=== PATIENT | female | born 1945 | race Two or more races ===

== ENCOUNTER 2020-02-03 09:30 | Outpatient (CLI) | payer MEDICARE, MEDICAID ==
[2020-02-03 10:41] LABS: BASOPHILS # (AUTO) 0.1 /CMM (0.0-0.2); BASOPHILS % (AUTO) 2.4 % (0.0-2.0); EOSINOPHILS % (AUTO) 2.4 % (0.0-6.0); HEMATOCRIT 33 % (33-45); HEMOGLOBIN 10.7 g/dL (11.5-14.8); LYMPHOCYTES % (AUTO) 34.3 % (20.0-44.0); MEAN CORPUSCULAR HGB CONC 33 g/dl (31.0-36.0); MEAN CORPUSCULAR VOLUME 95 fL (82-100); MONOCYTES # (AUTO) 0.3 /CMM (0.1-1.30); MONOCYTES % (AUTO) 11.4 % (2.0-12.0); NEUTROPHILS # (AUTO) 1.4 /CMM (1.8-8.9); NEUTROPHILS % (AUTO) 49.5 % (43.0-81.0); PLATELET COUNT (AUTO) 203 /CMM (150-450); RED BLOOD CELL COUNT(AUTO) 3.47 MIL/uL (4.0-5.2); WHITE BLOOD COUNT (AUTO) 2.8 K/uL (4.3-11.0)
[2020-02-03 11:23] LABS: ALANINE AMINOTRANSFERASE 12 U/L (12-78); ALBUMIN 3.2 g/dL (3.4-5.0); ALKALINE PHOSPHATASE 83 U/L (46-116); ASPARTATE AMINOTRANSFERASE 22 U/L (15-37); BILIRUBIN,TOTAL 0.4 mg/dL (0.2-1.0); CALCIUM, SERUM 8.6 mg/dL (8.5-10.1); CARBON DIOXIDE 32 mmol/L (21-32); CHLORIDE 101 mmol/L (98-107); CREATININE 3.3 mg/dL (0.6-1.3); GLUCOSE 104 mg/dL (74-106); MAGNESIUM 2.3 mg/dL (1.8-2.4); PHOSPHORUS 1.9 mg/dL (2.5-4.9); POTASSIUM 4.4 mmol/L (3.5-5.1); SODIUM SERUM 139 mmol/L (136-145); TOTAL PROTEIN, SERUM 7.8 g/dL (6.4-8.2); UREA NITROGEN, BLOOD 17 mg/dL (7-18)
[2020-02-03 15:38] LABS: PREALBUMIN 19.8 MG/DL (18.0-35.7)
[2020-02-04 10:08] LABS: FOLIC ACID 9.1 ng/mL (>3.0)
== END 2020-02-03 23:59 | disposition home or self-care (01) ==
LOC: MSC 09:30
PROVIDERS: ATTEND Internal Medicine
DX: E11.22 Type 2 diabetes mellitus with diabetic chronic kidney disease (principal); I12.0 Hypertensive chronic kidney disease with stage 5 chronic kidney disease or end stage renal disease; N18.6 End stage renal disease; Z99.2 Dependence on renal dialysis; Z79.84 Long term (current) use of oral hypoglycemic drugs
CPT/HCPCS: 36415; 80053; 82306; 82607; 82746; 83036; 83735; 84100; 84134; 85025; G0463

== ENCOUNTER 2022-01-02 11:46 | Inpatient (IN) | payer MEDICARE, OTHER ==
[~2022-01-02] VITALS: Ht 152.4 cm; Wt 54.9 kg
--- NOTE | 2022-01-02 11:55 | NUR ---
REceive pt 76 yrs famail s/p trip and fall down this this monhing pt came by pramic -c/o pain on lt leg a-v any on lt upper arm
[2022-01-02] MEDS ORDERED: MORPHINE SULFATE INJ 2 MG/ML DISP.SYRIN IV ONE ×2 (12:00→13:30)
[2022-01-02] MEDS ORDERED: ONDANSETRON HCL/PF 4 MG/2 ML VIAL IVP ONE (12:00)
--- NOTE | 2022-01-02 12:00 | NUR ---
inserted ango cathter on g 20 on rt ac blood drow and snded to lab
[2022-01-02] MEDS ORDERED: ONDANSETRON HCL/PF 4 MG/2 ML VIAL ONE (12:02)
[2022-01-02] MEDS ORDERED: MORPHINE SULFATE INJ 2 MG/ML DISP.SYRIN ONE (12:03)
[2022-01-02] MEDS ORDERED: NIFE-34 PO (12:17)
[2022-01-02] MEDS ORDERED: TRAM50TA2 PO (12:17)
[2022-01-02] MEDS ORDERED: METO25TA20 PO (12:17)
[2022-01-02] MEDS ORDERED: METF-440 PO (12:17)
[2022-01-02] MEDS ORDERED: LINA5TAB PO (12:17)
[2022-01-02] MEDS ORDERED: ASPI-1420 PO (12:17)
[2022-01-02] MEDS ORDERED: CALC667C6 PO (12:17)
[2022-01-02] MEDS ORDERED: MIRT45TA83 PO (12:17)
[2022-01-02] MEDS ORDERED: ZOLP5TAB8 PO (12:17)
[2022-01-02] MEDS ORDERED: SEVE800T8 PO (12:17)
[2022-01-02] MEDS ORDERED: MULT-447 PO (12:17)
[2022-01-02 12:18] LABS: BASOPHILS # (AUTO) 0.1 K/uL (0.0-0.2); EOSINOPHILS % (AUTO) 3.1 % (0.0-6.0); HEMATOCRIT 36 % (33-45); HEMOGLOBIN 11.9 g/dL (11.5-14.8); LYMPHOCYTES # (AUTO) 1.4 K/uL (0.8-4.8); LYMPHOCYTES % (AUTO) 16.3 % (20.0-44.0); MEAN CORPUSCULAR HGB CONC 33 g/dl (31.0-36.0); MEAN CORPUSCULAR VOLUME 96 fL (82-100); MONOCYTES # (AUTO) 0.7 K/uL (0.1-1.30); MONOCYTES % (AUTO) 7.7 % (2.0-12.0); NEUTROPHILS # (AUTO) 6.1 K/uL (1.8-8.9); NEUTROPHILS % (AUTO) 71.9 % (43.0-81.0); PLATELET COUNT (AUTO) 168 K/uL (150-450); RED BLOOD CELL COUNT(AUTO) 3.69 MIL/uL (4.0-5.2); WHITE BLOOD COUNT (AUTO) 8.5 K/uL (4.3-11.0)
--- NOTE | 2022-01-02 12:20 | NUR ---
X-RAY DONE AT BED SIDE ON LT LEG
--- NOTE | 2022-01-02 12:23 | NUR ---
MOVE SHEET SUBMITTED.
[2022-01-02 12:33] LABS: CALCIUM, SERUM 9.4 mg/dL (8.5-10.1); CARBON DIOXIDE 29 mmol/L (21-32); CHLORIDE 98 mmol/L (98-107); GLUCOSE 186 mg/dL (74-106); POTASSIUM 4.5 mmol/L (3.5-5.1); SODIUM SERUM 140 mmol/L (136-145); UREA NITROGEN, BLOOD 35 mg/dL (7-18)
--- NOTE | 2022-01-02 12:33 | NUR ---
CONTACTED [facility] TO CALL US BACK.
[2022-01-02 12:36] LABS: CREATININE 8.2 mg/dL (0.6-1.3)
[2022-01-02 12:39] LABS: ALANINE AMINOTRANSFERASE 22 U/L (12-78); ALBUMIN 3.6 g/dL (3.4-5.0); ALKALINE PHOSPHATASE 86 U/L (46-116); ASPARTATE AMINOTRANSFERASE 24 U/L (15-37); BILIRUBIN,DIRECT 0.2 mg/dL (0.0-0.2); BILIRUBIN,TOTAL 0.7 mg/dL (0.2-1.0); TOTAL PROTEIN, SERUM 8.1 g/dL (6.4-8.2)
--- NOTE | 2022-01-02 12:45 | NUR ---
COVID SWABE SEND TO LAB
--- NOTE | 2022-01-02 13:15 | NUR ---
ECCHO CARDO GRAM DONE AT BED SIDE
--- NOTE | 2022-01-02 13:21 | NUR ---
AT BED SIDE [facility]. FAYE [phone]
[2022-01-02] MEDS ORDERED: MORPHINE SULFATE INJ 4 MG/ML DISP.SYRIN ONE (13:35)
--- NOTE | 2022-01-02 14:25 | NUR ---
WATING FOR MEDICLE FLOOR BED
--- NOTE | 2022-01-02 15:05 | NUR ---
HAND OFF [place] LUZ RN TO ROOM 311A
--- NOTE | 2022-01-02 15:20 | NUR ---
DR Layton GRANT ORDER TO INSERTED F/C INSERTED F/C FR 16 NO DIFFECULTY URINE CLEAR YELLOW COLOR UA SNDEDE BY LAB
[2022-01-02] MEDS ORDERED: MAGNESIUM HYDROXIDE 30 ML UDC PO PRN (16:30)
[2022-01-02] MEDS ORDERED: ONDANSETRON HCL/PF 4 MG/2 ML VIAL IVP PRN (16:30)
[2022-01-02] MEDS ORDERED: TRAMADOL HCL 50 MG TABLET PO PRN (16:30)
[2022-01-02] MEDS ORDERED: MAG HYDROX/AL HYDROX/SIMETH 30 ML UDC PO PRN (16:30)
[2022-01-02] MEDS ORDERED: ZOLPIDEM TARTRATE 5 MG TABLET PO PRN ×2 (16:30)
[2022-01-02] MEDS ORDERED: Z GUARD REMEDY 4 OZ OINT TP PRN (16:30)
[2022-01-02] MEDS ORDERED: DEXTROSE 50%-WATER 50 ML DISP.SYRIN IV PRN (16:30)
[2022-01-02] MEDS ORDERED: ACETAMINOPHEN 325 MG TABLET PO PRN (16:30)
--- NOTE | 2022-01-02 16:30 | NUR ---
MS RUG SCRATCHER NOTE PT ADMITTED TO UNIT [facility]IA [facility] AT 1627 WITH DIAGNOSIS OF HIP FRACTURE, A/O X4. ABLE TO MAKE NEEDS KNOWN. MAURITANIAN SPEAKING ONLY. PT ORIENTED TO STAFF AND ROOM. V/S TAKEN AND RECORDED. PT ON ROOM AIR, TOLERATING WELL, BREATHING EVEN AND UNLABORED, NO ACUTE RESPIRATORY DISTRESS NOTED. SKIN IS INTACT. IV ACCESS NOTED ON RAC #20G INTACT AND PATENT, FLUSHING WELL. LUNGS CLEAR ON AUSCULTATION. ABDOMEN SOFT, MILD TENDERNESS NOTED ON RIGHT UPPER QUADRANT WITH POSITIVE BOWEL SOUNDS PRESENT. SAFETY PRECAUTIONS IMPLEMENTED: BED IN LOWEST LOCKED POSITION, SIDE RAILS UP X2 CALL LIGHT AND TRAY TABLE WITHIN PLACED W/I EASY REACH OF PT.WILL CONTINUE TO MONITOR PT ACCORDINGLY.
[2022-01-02] MEDS: METOPROLOL TARTRATE 25 MG TABLET PO SCH (17:32)
[2022-01-02] MEDS: BLOOD SUGAR DIAGNOSTIC 1 EACH STRIP VI SCH ×2 (17:37→22:15)
--- NOTE | 2022-01-02 18:45 | NUR ---
MS PRIMARY CARE PEDIATRICIAN NOTE PT IN BED SLEEPING, A/O X4. MAURITANIAN SPEAKING ONLY. DENIED PAIN UNLESS LEFT LEG IS MOVED. PT ON ROOM AIR, TOLERATING WELL, BREATHING EVEN AND UNLABORED, NO ACUTE RESPIRATORY DISTRESS NOTED. SKIN IS INTACT. IV ACCESS NOTED ON RAC #20G INTACT AND PATENT, FLUSHING WELL. REMINDED THE PATIENT REGARDING NPO AFTER MIDNIGHT FOR POSSIBLE OPERATION TOMORROW. SAFETY PRECAUTIONS IMPLEMENTED: BED IN LOWEST LOCKED POSITION, SIDE RAILS UP X2 CALL LIGHT AND TRAY TABLE WITHIN PLACED W/I EASY REACH OF PT. ENDORSED TO THE NIGHT NURSE.
[2022-01-02] MEDS: CALCIUM ACETATE 667 MG CAP/TAB PO SCH (18:49)
[2022-01-02 20:00] VITALS: BP 115/52
--- NOTE | 2022-01-02 20:00 | NUR ---
RN NOTE: ALERT AND ORIENTED TO NAME TIME AND PLACE. MOIST ORAL MUCOSA. UNLABORED BREATHING. HOB ELEVATED. IV ON RT AC G20 WITH NO S/S OF COMPLICATIONS. NO FACIAL GRIMACING. PAIN 0/10. BODY ALIGNMENT MAINTAINED FOR COMMINUTED DISPLACED INTO THE TROCHANTER LEFT FEMORAL NECK FX. S/P FALL AT HOME. MAHARAJ CATHETER IN PLACE DRAINING YELLOW URINE. BILATERAL HALF SIDE RAILS UPX2. FALL PRECAUTIONS MAINTAINED. BED LOCKED, EXIT ALARM, IN LOW POSITION. CALL LIGHT IN REACH.
[2022-01-02] MEDS: MIRTAZAPINE 45 MG TABLET PO SCH (22:10)
[2022-01-02] MEDS: INSULIN REGULAR, HUMAN 100 UNIT/ML 3 ML VIAL SQ PRN (22:17)
[2022-01-03] MEDS: MORPHINE SULFATE INJ 2 MG/ML DISP.SYRIN IV PRN ×2 (02:45→18:34)
[2022-01-03 06:06] LABS: BASOPHILS # (AUTO) 0.1 K/uL (0.0-0.2); EOSINOPHILS % (AUTO) 1.4 % (0.0-6.0); HEMATOCRIT 32 % (33-45); HEMOGLOBIN 10.7 g/dL (11.5-14.8); LYMPHOCYTES # (AUTO) 1.3 K/uL (0.8-4.8); LYMPHOCYTES % (AUTO) 18.8 % (20.0-44.0); MEAN CORPUSCULAR HGB CONC 33 g/dl (31.0-36.0); MEAN CORPUSCULAR VOLUME 98 fL (82-100); MONOCYTES # (AUTO) 0.6 K/uL (0.1-1.30); NEUTROPHILS # (AUTO) 4.8 K/uL (1.8-8.9); NEUTROPHILS % (AUTO) 69.8 % (43.0-81.0); PLATELET COUNT (AUTO) 154 K/uL (150-450); RED BLOOD CELL COUNT(AUTO) 3.25 MIL/uL (4.0-5.2); WHITE BLOOD COUNT (AUTO) 6.9 K/uL (4.3-11.0)
--- NOTE | 2022-01-03 06:30 | NUR ---
RN CLOSING NOTE: ALERT AND ORIENTED TO NAME TIME AND PLACE. MOIST ORAL MUCOSA. UNLABORED BREATHING. HOB ELEVATED. IV ON RT AC G20 WITH NO S/S OF COMPLICATIONS. BLOOD GLUCOSE CHECKED ORDERED WITH NO S/S OF HYPO OR HYPERGLYCEMIA. LEFT ARM AV SHUNT WITH NO S/S OF COMPLICATIONS. AT THIS TIME PAIN 0/10 BODY ALIGNMENT MAINTAINED FOR COMMINUTED DISPLACED INTO THE TROCHANTER LEFT FEMORAL NECK FX. S/P FALL AT HOME. FOR PRE-OP SURGERY TODAY AT 3:30PM. NPO AFTER MN. ON PAIN MANAGEMENT MORPHINE IV GIVEN ORDERED PRN FOR 10/10 ON LEFT HIP AND EFFECTIVE. MAHARAJ CATHETER IN PLACE DRAINING YELLOW URINE. BILATERAL HALF SIDE RAILS UPX2. FALL PRECAUTIONS MAINTAINED. BED LOCKED, EXIT ALARM, IN LOW POSITION. CALL LIGHT IN REACH.
[2022-01-03 07:13] LABS: CALCIUM, SERUM 8.8 mg/dL (8.5-10.1); CARBON DIOXIDE 28 mmol/L (21-32); CHLORIDE 97 mmol/L (98-107); GLUCOSE 97 mg/dL (74-106); MAGNESIUM 3.1 mg/dL (1.8-2.4); PHOSPHORUS 6.8 mg/dL (2.5-4.9); POTASSIUM 5.7 mmol/L (3.5-5.1); SODIUM SERUM 135 mmol/L (136-145); UREA NITROGEN, BLOOD 43 mg/dL (7-18)
[2022-01-03 07:14] LABS: CREATININE 8.8 mg/dL (0.6-1.3)
[2022-01-03] MEDS: PANTOPRAZOLE 40 MG TABLET.DR PO SCH (07:30)
--- NOTE | 2022-01-03 07:35 | NUR ---
RN OPENING NOTE PATIENT AWAKE IN BED RESTING. A/O X 3-4. PAIN LEVEL 3/10 AT THIS TIME, PERVIOUS SHIFT GAVE PAIN MEDICATION. ON ROOM AIR, NO DISTRESS OR SHORTNESS OF BREATH NOTED. IV ACCESS RAC #20G, INTACT, PATENT AND FLUSHING WELL. PATIENT HAVE A MAHARAJ CATHETER IN PLACE AND DRAINING WELL. FALL AND SAFETY MEASURES IN PLACE, BED IN LOW AND LOCK POSITION, CALL LIGHT AND TABLE WITHIN EASY REACH, SIDE RAILS UP X2. WILL CONTINUE TO MONITOR.
[2022-01-03] MEDS: CALCIUM ACETATE 667 MG CAP/TAB PO SCH ×3 (08:00→17:30)
[2022-01-03] MEDS ORDERED: POLYMYXIN B SULFATE 500,000 UNITS ONE (08:04)
[2022-01-03] MEDS ORDERED: BUPIVACAINE 0.5 % PF 150 MG/30 ML VIAL ONE (08:05)
[2022-01-03] MEDS ORDERED: ANESTHESIA TRAY IN PYXIS 1 EA TRAY MC ONE (08:05)
[2022-01-03] MEDS ORDERED: VANCOMYCIN 1 GM VIAL ONE (08:05)
[2022-01-03] MEDS: MULTIVIT W/MINERALS 1 TAB TABLET PO SCH (09:00)
[2022-01-03] MEDS: ASPIRIN EC 81 MG TABLET.DR PO SCH (09:00)
[2022-01-03] MEDS: NIFEdipine XL (30MG) 30 MG TAB PO SCH (09:00)
[2022-01-03] MEDS: METOPROLOL TARTRATE 25 MG TABLET PO SCH ×2 (09:00→17:00)
[2022-01-03] MEDS: SEVELAMER CARBONATE 800 MG TABLET PO SCH (09:00)
[2022-01-03] MEDS: BLOOD SUGAR DIAGNOSTIC 1 EACH STRIP VI SCH ×4 (09:52→22:34)
--- NOTE | 2022-01-03 15:00 | NUR ---
RN NOTE PATIENT IS NOT IN ROOM SHE WENT TO SURGERY (LEFT HIP INTRAMEDULLARY NAILING).
[2022-01-03] MEDS ORDERED: FENTANYL PF 250MCG/5ML AMPUL ONE (15:15)
[2022-01-03] MEDS ORDERED: ROCURONIUM BROMIDE 50 MG/5 ML ONE (15:15)
--- NOTE | 2022-01-03 18:30 | NUR ---
RN NOTE PATIENT IS BACK IN HER ROOM FROM SURGERY (LEFT HIP INTRAMEDULLARY NAILING), PATIENT TOLERATED SURGERY WELL. V/S TAKEN AND STABLE T:98.1, P:86, R:18, BP: 154/64, O2: 100% ROOM AIR. PAIN LEVEL 9/10, PAIN MEDICATION GIVEN. SURGICAL INCISION DRY AND INTACT. PT EVALUATION ORDERED, WBAT. ADVANCE DIET TOLERATED. WILL CONTINUE TO MONITOR.
--- NOTE | 2022-01-03 19:28 | NUR ---
RN CLOSING NOTE PATIENT AWAKE IN BED RESTING. A/O X 3-4. PAIN LEVEL 3/10 AT THIS TIME, PAIN MEDICATION GIVEN. ON ROOM AIR, NO DISTRESS OR SHORTNESS OF BREATH NOTED. IV ACCESS RAC #20G, INTACT, PATENT AND FLUSHING WELL. PATIENT HAVE A MAHARAJ CATHETER IN PLACE AND DRAINING WELL, OUTPUT 200ML. FALL AND SAFETY MEASURES IN PLACE, BED IN LOW AND LOCK POSITION, CALL LIGHT AND TABLE WITHIN EASY REACH, SIDE RAILS UP X2. WILL ENDORSE TO CALL CENTER TRAINER.
--- NOTE | 2022-01-03 19:50 | NUR ---
RN OPENING NOTES RECEIVED PT IN BED, ASLEEP, AWAKENS TO VERBAL STIMULI. AOx3. ON RA AND TOLERATING WELL. NO SOB NOTED. NO S/SX OF RESPIRATORY DISTRESS NOTED. IV ACCESS IN RAC #20G AND SIS FISTULA. IV IS INTACT, PATENT, AND FLUSHING WELL. STATUS POST INTRAMEDULLARY NAILING AND TOLERATING WELL. VS WNL. SAFETY PRECAUTIONS IN PLACE: BED IN LOWEST, LOCKED POSITION, SIDERAILS UPx2, AND BRAKES ON. TABLE AND CALL LIGHT WITHIN REACH. ALL NEEDS MET AT THIS TIME.
[2022-01-03 20:00] VITALS: BP 138/55
[2022-01-03] MEDS: MIRTAZAPINE 45 MG TABLET PO SCH (22:00)
[2022-01-03] MEDS: *INSULIN REGULAR(HUMULIN R)HUM 100 UNIT/ML VIAL SQ PRN (22:36)
[2022-01-04] MEDS: ANCEF 1 GM/50 ML D5W IV SCH ×4 (00:32→09:24)
[2022-01-04] MEDS: HYDROCODONE/APAP 5/325MG TABLET PO PRN (00:48)
--- NOTE | 2022-01-04 00:48 | NUR ---
RN NOTES ADMINISTERED NORCO FOR PAIN PER MD ORDER. VS WNL.
[2022-01-04] MEDS: MORPHINE SULFATE INJ 2 MG/ML DISP.SYRIN IV PRN (05:52)
--- NOTE | 2022-01-04 05:52 | NUR ---
RN NOTES ADMINISTER MORPHINE FOR PAIN PER MD ORDER. VS WNL.
[2022-01-04 06:21] LABS: BASOPHILS % (AUTO) 0.1 % (0.0-2.0); EOSINOPHILS % (AUTO) 0.1 % (0.0-6.0); HEMATOCRIT 30 % (33-45); HEMOGLOBIN 9.9 g/dL (11.5-14.8); LYMPHOCYTES # (AUTO) 0.9 K/uL (0.8-4.8); LYMPHOCYTES % (AUTO) 11.3 % (20.0-44.0); MEAN CORPUSCULAR HGB CONC 33 g/dl (31.0-36.0); MEAN CORPUSCULAR VOLUME 99 fL (82-100); MONOCYTES # (AUTO) 0.9 K/uL (0.1-1.30); MONOCYTES % (AUTO) 11.8 % (2.0-12.0); NEUTROPHILS # (AUTO) 6.2 K/uL (1.8-8.9); NEUTROPHILS % (AUTO) 76.7 % (43.0-81.0); PLATELET COUNT (AUTO) 143 K/uL (150-450); RED BLOOD CELL COUNT(AUTO) 3.03 MIL/uL (4.0-5.2)
[2022-01-04] MEDS: BLOOD SUGAR DIAGNOSTIC 1 EACH STRIP VI SCH ×4 (06:34→21:56)
[2022-01-04] MEDS: *INSULIN REGULAR(HUMULIN R)HUM 100 UNIT/ML VIAL SQ PRN ×2 (06:35→21:56)
[2022-01-04 06:41] LABS: CALCIUM, SERUM 8.1 mg/dL (8.5-10.1); CARBON DIOXIDE 26 mmol/L (21-32); CHLORIDE 95 mmol/L (98-107); CREATININE 6.7 mg/dL (0.6-1.3); GLUCOSE 118 mg/dL (74-106); POTASSIUM 5.2 mmol/L (3.5-5.1); SODIUM SERUM 135 mmol/L (136-145); UREA NITROGEN, BLOOD 40 mg/dL (7-18)
--- NOTE | 2022-01-04 06:50 | NUR ---
RN CLOSING NOTES PT IN BED, ASLEEP, AWAKENS TO VERBAL STIMULI. AOx4, OCCITAN SPEAKER AND ABLE TO MAKE NEEDS KNOWN. ON RA AND TOLERATING WELL. NO SOB NOTED. NO S/SX OF RESPIRATORY DISTRESS NOTED. IV ACCESS IN RAC #20G AND SIS FISTULA. IV IS INTACT, PATENT, AND FLUSHING WELL. STATUS POST INTRAMEDULLARY NAILING AND TOLERATING WELL. DRESSING CLEAN, DRY, AND INTACT. ALL ORDERS CARRIED OUT. ALL NEEDS MET. PT KEPT CLEAN AND DRY. SAFETY PRECAUTIONS IN PLACE: BED IN LOWEST, LOCKED POSITION, SIDERAILS UPx2, AND BRAKES ON. TABLE AND CALL LIGHT WITHIN REACH. WILL ENDORSE TO ONCOMING SHIFT FOR MEGAN.
--- NOTE | 2022-01-04 07:30 | NUR ---
RN OPENING NOTE PATIENT AWAKE IN BED RESTING. A/O X 3-4. NO PAIN AT THIS TIME. ON ROOM AIR, NO DISTRESS OR SHORTNESS OF BREATH NOTED. IV ACCESS RAC #20G, INTACT, PATENT AND FLUSHING WELL, SIS FISTULA. PATIENT HAVE A MAHARAJ CATHETER IN PLACE AND DRAINING WELL. FALL AND SAFETY MEASURES IN PLACE, BED IN LOW AND LOCK POSITION, CALL LIGHT AND TABLE WITHIN EASY REACH, SIDE RAILS UP X2. WILL CONTINUE TO MONITOR.
[2022-01-04 08:00] VITALS: BP 129/50
[2022-01-04] MEDS: MULTIVIT W/MINERALS 1 TAB TABLET PO SCH (08:41)
[2022-01-04] MEDS: PANTOPRAZOLE 40 MG TABLET.DR PO SCH (08:41)
[2022-01-04] MEDS: SEVELAMER CARBONATE 800 MG TABLET PO SCH (08:41)
[2022-01-04] MEDS: CALCIUM ACETATE 667 MG CAP/TAB PO SCH ×3 (08:42→17:14)
[2022-01-04] MEDS: ASPIRIN EC 81 MG TABLET.DR PO SCH (08:42)
[2022-01-04] MEDS: ENOXAPARIN SODIUM 30 MG/0.3 ML DISP.SYRIN SQ SCH (08:44)
[2022-01-04] MEDS: METOPROLOL TARTRATE 25 MG TABLET PO SCH ×2 (08:45→17:15)
[2022-01-04] MEDS: NIFEdipine XL (30MG) 30 MG TAB PO SCH (08:46)
--- NOTE | 2022-01-04 09:30 | NUR ---
RN NOTE PATIENT BLOOD PRESSURE MEDICATIONS WAS NOT GIVEN BECAUSE PATIENT WILL HAVE HEMODIALYSIS TODAY.
[2022-01-04 16:00] VITALS: BP 117/46
[2022-01-04] MEDS: INSULIN REGULAR, HUMAN 100 UNIT/ML 3 ML VIAL SQ PRN (16:55)
--- NOTE | 2022-01-04 18:39 | NUR ---
RN CLOSING NOTE PATIENT AWAKE IN BED RESTING. A/O X 3-4. NO PAIN AT THIS TIME. ON ROOM AIR, NO DISTRESS OR SHORTNESS OF BREATH NOTED. IV ACCESS RFA #24G, INTACT, PATENT AND FLUSHING WELL, SIS FISTULA, NO BP OR BLOOD ON THE LEFT ARM. PATIENT HAVE A MAHARAJ CATHETER IN PLACE AND DRAINING WELL, NO OUTPUT. SCHEDULE MEDICATIONS GIVEN. PATIENT REPOSITIONED PER PROTOCOL. FALL AND SAFETY MEASURES IN PLACE, BED IN LOW AND LOCK POSITION, CALL LIGHT AND TABLE WITHIN EASY REACH, SIDE RAILS UP X2. WILL ENDORSE TO SPA RECEPTIONIST.
--- NOTE | 2022-01-04 19:30 | NUR ---
RN OPENING NOTE PATIENT IN BED, AWAKE. PATIENT IS A/O X 3, TUNISIAN SPEAKING BUT ABLE TO UNDERSTAND SOME MACEDONIAN. PATIENT HAS A MAHARAJ CATHETER IN PLACE, NO OUTPUT AT THIS TIME. PATIENT'S DRESSING ON THE L HIP C/D/I. RFA 24 G PATENT AND INTACT, SALINE LOCKED. SIS AV FISTULA WITH BRUIT AND THRILL PRESENT. PATIENT DOES NOT REPORT OF ANY PAIN. SAFETY MEASURES IN PLACE: BED LOCKED AND IN LOWEST POSITION, CALL LIGHT WITHIN REACH, SIDE RAILS UP. WILL MONITOR PATIENT CLOSELY.
[2022-01-04 20:00] VITALS: BP 94/42
[2022-01-04] MEDS: MIRTAZAPINE 45 MG TABLET PO SCH (21:49)
--- NOTE | 2022-01-04 22:00 | NUR ---
RN NOTE PATIENT'S BS 161 MG/DL, PATIENT REFUSED THE 3 UNITS OF INSULIN. WILL MONITOR PATIENT FOR HYPO/HYPERGLYCEMIA.
[2022-01-05 06:40] LABS: BASOPHILS % (AUTO) 0.5 % (0.0-2.0); EOSINOPHILS % (AUTO) 0.7 % (0.0-6.0); HEMATOCRIT 26 % (33-45); LYMPHOCYTES # (AUTO) 0.9 K/uL (0.8-4.8); LYMPHOCYTES % (AUTO) 15.5 % (20.0-44.0); MEAN CORPUSCULAR HGB CONC 34 g/dl (31.0-36.0); MEAN CORPUSCULAR VOLUME 98 fL (82-100); MONOCYTES # (AUTO) 0.8 K/uL (0.1-1.30); MONOCYTES % (AUTO) 14.6 % (2.0-12.0); NEUTROPHILS # (AUTO) 3.9 K/uL (1.8-8.9); NEUTROPHILS % (AUTO) 68.7 % (43.0-81.0); PLATELET COUNT (AUTO) 127 K/uL (150-450); WHITE BLOOD COUNT (AUTO) 5.7 K/uL (4.3-11.0)
--- NOTE | 2022-01-05 06:42 | NUR ---
RN CLOSING NOTE PATIENT IN BED, EYES CLOSED. PATIENT IS A/O X 3, WELSH SPEAKING BUT ABLE TO UNDERSTAND SOME [place]. PATIENT HAS A MAHARAJ CATHETER IN PLACE, NO OUTPUT DURING THE SHIFT. PATIENT'S DRESSING ON THE L HIP C/D/I. RFA 24 G PATENT AND INTACT, SALINE LOCKED. SIS AV FISTULA WITH BRUIT AND THRILL PRESENT. PATIENT DID NOT REPORT OF ANY PAIN DURING THE SHIFT. BS 125 MG/DL, NO COVERAGE GIVEN. SAFETY MEASURES IN PLACE: BED LOCKED AND IN LOWEST POSITION, CALL LIGHT WITHIN REACH, SIDE RAILS UP. ALL NEEDS MET AND ATTENDED. ALL ORDERS CARRIED OUT. WILL ENDORSE TO DAY SHIFT NURSE FOR MEGAN.
[2022-01-05] MEDS: BLOOD SUGAR DIAGNOSTIC 1 EACH STRIP VI SCH ×4 (06:44→22:37)
[2022-01-05] MEDS: INSULIN REGULAR, HUMAN 100 UNIT/ML 3 ML VIAL SQ PRN ×3 (06:45→18:20)
[2022-01-05 07:18] LABS: CALCIUM, SERUM 8.6 mg/dL (8.5-10.1); CARBON DIOXIDE 27 mmol/L (21-32); CHLORIDE 94 mmol/L (98-107); CREATININE 6.1 mg/dL (0.6-1.3); GLUCOSE 121 mg/dL (74-106); MAGNESIUM 2.4 mg/dL (1.8-2.4); PHOSPHORUS 4.5 mg/dL (2.5-4.9); POTASSIUM 4.8 mmol/L (3.5-5.1); SODIUM SERUM 130 mmol/L (136-145); UREA NITROGEN, BLOOD 39 mg/dL (7-18)
--- NOTE | 2022-01-05 07:20 | NUR ---
ms rn received on bed, awake,alert,oriented x3,not in any form of distress, respirations even and unlabored, no sob noted, dialysis pt, denies pain at this time,all needs attended.
[2022-01-05 08:00] VITALS: BP 146/47
[2022-01-05] MEDS: CALCIUM ACETATE 667 MG CAP/TAB PO SCH ×3 (08:00→18:08)
--- NOTE | 2022-01-05 09:00 | NUR ---
ms rosana segundo served,due meds given, tolerated well.
[2022-01-05] MEDS: MULTIVIT W/MINERALS 1 TAB TABLET PO SCH (09:44)
[2022-01-05] MEDS: METOPROLOL TARTRATE 25 MG TABLET PO SCH ×2 (09:45→18:08)
[2022-01-05] MEDS: SEVELAMER CARBONATE 800 MG TABLET PO SCH (09:45)
[2022-01-05] MEDS: ASPIRIN EC 81 MG TABLET.DR PO SCH (09:45)
[2022-01-05] MEDS: NIFEdipine XL (30MG) 30 MG TAB PO SCH (09:45)
--- NOTE | 2022-01-05 09:50 | NUR ---
ms wayne simeon to gravity, w/ yellowish urine, moderate in amount, will monitor patient.
[2022-01-05] MEDS: ENOXAPARIN SODIUM 30 MG/0.3 ML DISP.SYRIN SQ SCH (09:51)
[2022-01-05] MEDS: PANTOPRAZOLE 40 MG TABLET.DR PO SCH (09:52)
[2022-01-05] MEDS ORDERED: Hydrocodone/Apap 5/325MG PO (14:25)
[2022-01-05] MEDS ORDERED: ENOX30DI SQ (14:25)
[2022-01-05 16:00] VITALS: BP 143/42
--- NOTE | 2022-01-05 17:55 | NUR ---
ms rn on bed,all needs attended.
--- NOTE | 2022-01-05 18:45 | NUR ---
ms rn on bed, no distress noted.
[2022-01-05 20:16] VITALS: BP 128/51
[2022-01-05 20:30] VITALS: BP 125/66
[2022-01-05] MEDS: MIRTAZAPINE 45 MG TABLET PO SCH (22:37)
--- NOTE | 2022-01-06 05:22 | NUR ---
RN NOTES PT IN BED, ASLEEP, AWAKENS TO VERBAL STIMULI. ROMANIAN SPEAKER AND ABLE TO MAKE NEEDS KNOWN. ON RA AND TOLERATING WELL. NO SOB NOTED. NO S/SX OF RESPIRATORY DISTRESS NOTED. DRESSING CLEAN, DRY. ALL NEEDS MET. PT KEPT CLEAN AND DRY. SAFETY PRECAUTIONS IN PLACE: BED IN LOWEST, LOCKED POSITION, SIDERAILS UPx2, AND BRAKES ON. TABLE AND CALL LIGHT WITHIN REACH.
[2022-01-06] MEDS: BLOOD SUGAR DIAGNOSTIC 1 EACH STRIP VI SCH ×4 (06:51→21:25)
--- NOTE | 2022-01-06 07:10 | NUR ---
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
[2022-01-06 08:00] VITALS: BP 161/55
--- NOTE | 2022-01-06 09:00 | NUR ---
ms wayne breakfast served,due meds given,tolerated well.
[2022-01-06] MEDS: CALCIUM ACETATE 667 MG CAP/TAB PO SCH ×3 (09:20→17:31)
[2022-01-06] MEDS: ASPIRIN EC 81 MG TABLET.DR PO SCH (09:20)
[2022-01-06] MEDS: MULTIVIT W/MINERALS 1 TAB TABLET PO SCH (09:20)
[2022-01-06] MEDS: NIFEdipine XL (30MG) 30 MG TAB PO SCH (09:21)
[2022-01-06] MEDS: PANTOPRAZOLE 40 MG TABLET.DR PO SCH (09:21)
[2022-01-06] MEDS: METOPROLOL TARTRATE 25 MG TABLET PO SCH ×2 (09:21→17:00)
[2022-01-06] MEDS: ENOXAPARIN SODIUM 30 MG/0.3 ML DISP.SYRIN SQ SCH (09:22)
[2022-01-06] MEDS: SEVELAMER CARBONATE 800 MG TABLET PO SCH (09:22)
[2022-01-06 11:44] LABS: BASOPHILS % (AUTO) 0.7 % (0.0-2.0); EOSINOPHILS % (AUTO) 2.2 % (0.0-6.0); HEMATOCRIT 27 % (33-45); LYMPHOCYTES # (AUTO) 0.7 K/uL (0.8-4.8); LYMPHOCYTES % (AUTO) 12.8 % (20.0-44.0); MEAN CORPUSCULAR HGB CONC 34 g/dl (31.0-36.0); MEAN CORPUSCULAR VOLUME 98 fL (82-100); MONOCYTES # (AUTO) 0.6 K/uL (0.1-1.30); MONOCYTES % (AUTO) 11.2 % (2.0-12.0); NEUTROPHILS # (AUTO) 3.9 K/uL (1.8-8.9); NEUTROPHILS % (AUTO) 73.1 % (43.0-81.0); PLATELET COUNT (AUTO) 162 K/uL (150-450); RED BLOOD CELL COUNT(AUTO) 2.76 MIL/uL (4.0-5.2); WHITE BLOOD COUNT (AUTO) 5.3 K/uL (4.3-11.0)
[2022-01-06 11:47] LABS: CALCIUM, SERUM 8.4 mg/dL (8.5-10.1); CARBON DIOXIDE 27 mmol/L (21-32); CHLORIDE 94 mmol/L (98-107); GLUCOSE 213 mg/dL (74-106); POTASSIUM 5.3 mmol/L (3.5-5.1); SODIUM SERUM 128 mmol/L (136-145); UREA NITROGEN, BLOOD 68 mg/dL (7-18)
[2022-01-06 11:51] LABS: CREATININE 8.3 mg/dL (0.6-1.3)
[2022-01-06] MEDS: INSULIN REGULAR, HUMAN 100 UNIT/ML 3 ML VIAL SQ PRN ×2 (13:13→21:28)
[2022-01-06 16:00] VITALS: BP 125/47
--- NOTE | 2022-01-06 17:04 | NUR ---
ms rn on bed, still on hemodialysis,all needs attended.
--- NOTE | 2022-01-06 18:00 | NUR ---
ms rosana hd done w/ 1000ml output, bs - 137 - patient refused to cover insulin,all needs attended.
--- NOTE | 2022-01-06 19:24 | NUR ---
RN OPENING NOTE PATIENT AWAKE IN BED. A/OX3. NO S/S OF DISTRESS, BREATHING WITHOUT DIFFICULTY ON ROOM AIR. RFA #24 SL INTACT AND PATENT. SAFETY MEASURES IN PLACE: BED LOCKED AND AT LOWEST POSITION, RAILS UP X2, CALL PERRY WITHIN REACH. WILL CONTINUE TO MONITOR PATIENT.
[2022-01-06 20:00] VITALS: BP 112/39
[2022-01-06] MEDS: MIRTAZAPINE 45 MG TABLET PO SCH (21:25)
--- NOTE | 2022-01-07 01:14 | NUR ---
RN NOTE PATIENT EXHIBITED A FEVER OF 100.4 F. PATIENT WAS GIVEN TYLENOL, COVERS PULLED BACK, AND ROOM TEMPERATURE LOWERED. UPON FOLLOW-UP, PATIENT IS NOW AT 98.5 F. PATIENT STATES NO PAIN OR DISCOMFORT AT THIS TIME; PATIENT STABLE; WILL CONTINUE TO MONITOR PATIENT.
[2022-01-07] MEDS: HYDROCODONE/APAP 5/325MG TABLET PO PRN ×2 (04:45→11:56)
[2022-01-07] MEDS: INSULIN REGULAR, HUMAN 100 UNIT/ML 3 ML VIAL SQ PRN ×2 (05:50→11:53)
[2022-01-07] MEDS: BLOOD SUGAR DIAGNOSTIC 1 EACH STRIP VI SCH ×3 (06:37→17:18)
--- NOTE | 2022-01-07 07:04 | NUR ---
RN CLOSING NOTE PATIENT ASLEEP IN BED. A/OX3. NO S/S OF DISTRESS, BREATHING WITHOUT DIFFICULTY ON ROOM AIR. RFA #20 SL INTACT AND PATENT. SAFETY MEASURES IN PLACE: BED LOCKED, IN LOWEST POSITION, RAILS UP X2, CALL PERRY WITHIN REACH. WILL ENDORSE TO NEXT SHIFT FOR MEGAN.
--- NOTE | 2022-01-07 07:15 | NUR ---
ms rn received on bed, awake,alert,oriented x3,not in any form of distress, respirations even and unlabored,no sob noted, lungs are diminished, abdomen soft,positive bowel sounds, denies pain at this time,a dialy jethro patient ,not scheduled today,will monitor patient.
[2022-01-07 08:00] VITALS: BP 110/45
[2022-01-07] MEDS: ASPIRIN EC 81 MG TABLET.DR PO SCH (08:18)
[2022-01-07] MEDS: PANTOPRAZOLE 40 MG TABLET.DR PO SCH (08:18)
[2022-01-07] MEDS: SEVELAMER CARBONATE 800 MG TABLET PO SCH (08:18)
[2022-01-07] MEDS: CALCIUM ACETATE 667 MG CAP/TAB PO SCH ×3 (08:19→17:18)
[2022-01-07] MEDS: MULTIVIT W/MINERALS 1 TAB TABLET PO SCH (08:19)
[2022-01-07] MEDS: ENOXAPARIN SODIUM 30 MG/0.3 ML DISP.SYRIN SQ SCH (08:27)
--- NOTE | 2022-01-07 08:30 | NUR ---
ms wayne breakfast served,due meds given,tolerated well.
[2022-01-07] MEDS: NIFEdipine XL (30MG) 30 MG TAB PO SCH (09:00)
[2022-01-07] MEDS: METOPROLOL TARTRATE 25 MG TABLET PO SCH ×2 (09:00→17:00)
[2022-01-07 09:42] LABS: CALCIUM, SERUM 8.9 mg/dL (8.5-10.1); CARBON DIOXIDE 32 mmol/L (21-32); CHLORIDE 97 mmol/L (98-107); CREATININE 5.6 mg/dL (0.6-1.3); GLUCOSE 96 mg/dL (74-106); POTASSIUM 4.2 mmol/L (3.5-5.1); SODIUM SERUM 135 mmol/L (136-145); UREA NITROGEN, BLOOD 40 mg/dL (7-18)
[2022-01-07 09:46] LABS: PHOSPHORUS 3.8 mg/dL (2.5-4.9)
--- NOTE | 2022-01-07 12:00 | NUR ---
ms sharif was seen by lizeth sanders/ orders made and carried out.
[2022-01-07 15:57] VITALS: BP 130/40
[2022-01-07 17:00] VITALS: BP 138/40
--- NOTE | 2022-01-07 17:00 | NUR ---
ms rn report given to rn at [facility], patient transferred to snf, no distress noted, discharge instruction given and understood.
== END 2022-01-07 17:45 | DRG 480 ==
LOC: ER 11:49 → MED 14:08
PROVIDERS: ADMIT Student in an Organized Health Care Education/Training Program; ATTEND Nurse Practitioner Acute Care
PROC: 0QS706Z Reposition Left Upper Femur with Intramedullary Internal Fixation Device, Open Approach (ICD-10-PCS; principal; 2022-01-03)
PROC: 5A1D70Z Performance of Urinary Filtration, Intermittent, Less than 6 Hours Per Day (ICD-10-PCS; 2022-01-03)
PROC: 5A1D70Z Performance of Urinary Filtration, Intermittent, Less than 6 Hours Per Day (ICD-10-PCS; 2022-01-04)
PROC: 5A1D70Z Performance of Urinary Filtration, Intermittent, Less than 6 Hours Per Day (ICD-10-PCS; 2022-01-06)
DX: S72.142A Displaced intertrochanteric fracture of left femur, initial encounter for closed fracture (principal); N18.6 End stage renal disease; I12.0 Hypertensive chronic kidney disease with stage 5 chronic kidney disease or end stage renal disease; E87.1 Hypo-osmolality and hyponatremia; Z99.2 Dependence on renal dialysis; E11.22 Type 2 diabetes mellitus with diabetic chronic kidney disease; E87.5 Hyperkalemia; M89.8X9 Other specified disorders of bone, unspecified site; W19.XXXA Unspecified fall, initial encounter; Y92.009 Unspecified place in unspecified non-institutional (private) residence as the place of occurrence of the external cause; Z79.82 Long term (current) use of aspirin; Z82.49 Family history of ischemic heart disease and other diseases of the circulatory system; Z83.3 Family history of diabetes mellitus; Z79.84 Long term (current) use of oral hypoglycemic drugs; Z79.899 Other long term (current) drug therapy; I35.0 Nonrheumatic aortic (valve) stenosis; Z20.822 Contact with and (suspected) exposure to COVID-19
CPT/HCPCS: 36415; 71045-TC; 72170-TC; 73020; 73502; 80048-TC; 80076-TC; 82962-TC; 83735-TC; 84100-TC; 84484-TC; 85025-TC; 85730-TC; 86706; 86850-TC; 87081-TC; 87340; 90935-TC; 93307-TC; 97116-TC; 97530-TC; A6253; C1713; C9803; G0378; J0330; J0690; J1100; J1650; J1815; J2270; J2405; J2704; J3010; J3370; J3490; J7030; J7060